=== PATIENT | male | born 1970 | race Caucasian/White ===

== ENCOUNTER 2020-04-09 17:59 | Emergency (ER) | payer OTHER, SELFPAY ==
[2020-04-09 17:59] VITALS: BP 121/88; PULSE 88; RESP 16; TEMP 37; O2SAT 96
[2020-04-09 18:01] VITALS: BP 121/88; PULSE 91; RESP 16; TEMP 37; O2SAT 96; BMI 33.1
[2020-04-09] MEDS: Diphth,Pertuss(Acell),Tet Vac 0.5 ML Vial IM (18:26)
[2020-04-09 18:30] LABS: Absolute Lymphocyte Count 3.44 X10^3/uL (0.83-4.51); Absolute Neutrophil Count 6.4 X10^3/uL (2.0-7.7); Basophil# 0.06 X10^3/uL; Basophil% 0.5 % (0-1); Eosinophil# 0.25 X10^3/uL; Eosinophils% 2.2 % (0-5); Hematocrit 43.7 % (40-54); Hemoglobin 14.6 g/dL (13.0-16.5); Lymphocyte # 3.44 X10^3/ul (4.0); Lymphocyte % 30.8 % (19-41); Mean Corp Hgb Conc 33.4 g/dL (32-36); Mean Corpuscular Volume 89.7 fL (80-94); Mean Platelet Vol. 10.8 fl (6.2-12.0); Monocyte# 0.99 X10^3/uL; Monocyte% 8.9 % (0-10); NRBC Flagged by Analyzer 0 % (0-5); Neutrophil # 6.36 X10^3/uL (2.7-7.7); Platelet Count 255 K/mm3 (150-450); RBC Distribution Width CV 13.6 % (11.6-14.6); RBC Distribution Width SD 44.4 fl (35.1-43.9); Red Blood Count 4.87 M/mm3 (4.6-6.2); White Blood Count 11.2 K/mm3 (4.4-11.0)
[2020-04-09 18:35] LABS: Prothrombin Time (Protime)PT. 12.9 SECONDS (11.7-14.9)
[2020-04-09] MEDS: 0.9% Normal Saline 1,000 ML 999 ML IV (19:10)
[2020-04-09 19:14] VITALS: BP 87/59; PULSE 80; RESP 16; O2SAT 95
--- NOTE | 2020-04-09 19:23 | ED.VIS.INJ ---
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 Patient is left-hand dominant. He was tempted to cut the cortical weed [place] with utility knife when he excellently cut into his right wrist/hand. He had significant bleeding could not get it to stop so EMS was called he was brought to the emergency room. Patient is not on any anticoagulation. Denies any numbness but is having trouble extending his thumb. Unsure when his last tetanus was. Tetanus Immunization: Unknown Past Medical History - Allergies and Home Meds Allergies/Adverse Reactions: Allergies No Known Allergies Allergy (Verified 04/09/20 18:05) Primary Care Physician: Molina Plata MD [Primary Care Provider] - Past Medical History: - - Glaucoma Surgical History: noncontributory Lives: Spouse/ Significant Other Smoking Status: Current every day smoker Review of Systems General: Denies: Chills, Fever, Sweats Eyes: Denies: Visual changes - bilaterally, Diplopia ENT: Denies: Rhinorrhea, Sore throat Cardiovascular: Denies: Chest pain, Palpitations Respiratory: Denies: Dyspnea, Cough, Dyspnea on exertion Gastrointestinal: Denies: Abdominal pain, Nausea, Vomiting, Diarrhea, Melena, Hematochezia Genitourinary: Denies: Dysuria, Hematuria, Frequency Musculoskeletal: Reports: Extremity Pain - right wrist/hand. Denies: Back pain Skin: Reports: Wounds - right hand . Denies: Rash Neurological: Denies: Headache, Weakness, Numbness Physical Exam Vital Signs/Narrative: Vital Signs Temp Pulse Resp BP Pulse Ox 04/09/20 19:14 80 16 87/59 L 95 04/09/20 18:01 98.6 F 91 16 121/88 H 96 04/09/20 17:59 98.6 F 88 16 121/88 H 96 Inital Vital Signs reviewed: Yes General: Well nourished, Well developed Head: Normocephalic, Atraumatic Eyes: Perrl, EOMI ENT: No trauma. Negative for: Nasal trauma, Nasal septal hematoma Neck: Nontender, Full ROM Cardiovascular: Regular rate, Regular rhythm, No murmurs Respiratory: No distress, CTA bilaterally, Chest nontender Abdomen: Soft, Nontender, Nondistended, Normal bowel sounds Back: Nontender Extremeties: No bony deformity. Patient has decreased ability to extend his right thumb. Otherwise range of motion is intact. Normal strength and sensation is all movement of the other fingers. Patient is able to flex his right thumb. Skin: Normal color, No rash, Trauma - 6 cm x 3 cm linear laceration traveling from the lateral hand at the base of the thumb to the dorsal aspect of the hand. There is a significant amount of bleeding on my initial exam. Full-thickness laceration with exposed muscles. Neurological: Alert, Oriented x3, Cranial nerves II-XII grossly intact, Normal Strength, Normal Sensation Psychological: Normal affect - Glascow Coma Scale Eye Opening: Spontaneous Motor: Obeys Commands Verbal: Oriented Coma Scale Total: 15 Diagnostic/Tx/Re-eval Laboratory Data 04/09/20 04/09/20 04/09/20 18:15 18:15 18:15 WBC 11.2 H RBC 4.87 Hgb 14.6 Hct 43.7 MCV 89.7 MCH 30.0 MCHC 33.4 RDW Std Deviation 44.4 H RDW Coeff of Eliz 13.6 Plt Count 255 MPV 10.8 Immature Gran % (Auto) 0.600 Neut % (Auto) 57.0 Lymph % (Auto) 30.8 Bowie % (Auto) 8.9 Eos % (Auto) 2.2 Baso % (Auto) 0.5 Absolute Neuts (auto) 6.4 Absolute Lymphs (auto) 3.44 Nucleated RBC % 0 PT 12.9 INR 1.0 Blood Type A POSITIVE Antibody Screen NEGATIVE - Medical Decision Making Patient is evaluated for laceration to his right hand. Patient significant bleeding that is ultimately controlled with the tourniquet and direct pressure. He seems to have a defect in his extensor mechanism of his right thumb. He is otherwise neuro vastly intact. My concern is for tendinous injury. Did discuss with hand surgery on-call at [facility], Dr. Grigsby, who feels that if we can get the bleeding under control and splint time he does not need to be seen emergently tonight for transfer. We will follow-up with him in the office in the next few days. See procedure note for laceration repair. Patient is placed in a thumb spica splints in the emergency room. He does have a transient episode of hypotension which I suspect is secondary to some acute blood loss. He is given IV fluids and has improvement. He is ambulated in the ER and does well. He is given a dose of empiric Ancef in the emergency room. His tetanus is updated. He is given return precautions. He is discharged home in stable and improved condition. Laceration No standard instances Length: 2.36 in Depth: Fascia Shape: Linear Prep: Sterile Conditions, Brianda-Aaron Laceration Repair: Sutures Irrigated (ml): 500 Number of Sutures/Lorenzo: 9 Stitch Description: Ethilon, Simple, 4-0 Comment: Copious irrigation. Tourniquet applied to the upper arm to stem bleeding. Total tourniquet time was 25 minutes. Unable to visualize tendon with range of motion. Laceration repair performed then the tourniquet was released. Pressure was applied and no further bleeding. Xeroform placed over the wound. Patient neuro vastly intact afterwards. Procedures - Upper Extremity Splints Upper Extremity Splint: Orthoglass, Thumb Spica Splint Fabrication: Fabricated Location: Right ED Disposition - Plan for ED Patient: Disposition: Home or Assisted Living Diagnosis: Laceration of right hand involving extensor tendon Instructions: ED Laceration Hand, ED TENDON LACERATION Prescriptions: Ibuprofen [Motrin] 600 mg PO Q6H PRN PRN #20 tab PRN Reason: Pain Score 1-10/10 Prescription Printed Hydrocodone/Acetaminophen [Avon 5-325 Tablet] 1 ea PO Q6H PRN PRN #12 tab PRN Reason: Pain Score 6-10/10 Prescription Printed Referrals: Molina Plata MD [Primary Care Provider] - Additional Instructions: I am concerned that you lacerated part of your tendon for your thumb. You need to follow-up with a hand specialist, Dr. Grigsby, in [place]. He is affiliated with [facility]. His phone number is [phone]. Please call the office tomorrow to schedule an appointment within the next 3 to 5 days. Alternate Tylenol and ibuprofen as needed for pain. Continue to wear the splint at all times. Do not get it wet. Scribe Avon for breakthrough pain. Do not take Tylenol with this medication as it already contains Tylenol.
[2020-04-09] MEDS: Cefazolin 1 GM/50 ML BAG IV (19:43)
[2020-04-09 20:27] VITALS: BP 118/79; PULSE 89; RESP 18; O2SAT 94
== END 2020-04-09 20:28 | disposition home or self-care (01) ==
PROVIDERS: Emergency Provider Emergency Medicine; PCP Family Medicine
DX: S66.221A Laceration of extensor muscle, fascia and tendon of right thumb at wrist and hand level, initial encounter (principal); S61.411A Laceration without foreign body of right hand, initial encounter; W26.0XXA Contact with knife, initial encounter; Y93.89 Activity, other specified; Y92.9 Unspecified place or not applicable; F17.200 Nicotine dependence, unspecified, uncomplicated
CPT/HCPCS: 12002; 85025; 85610; 86850; 86900; 86901; 90471; 90715; 96365; 96367; 99284; J7030; J7050; A4216